=== PATIENT | male | born 1985 | race Caucasian/White ===

== ENCOUNTER 2020-05-31 12:13 | Emergency (ER) | payer OTHER, SELFPAY ==
[2020-05-31 12:14] VITALS: BP 138/82; PULSE 73; RESP 16; TEMP 35.9; O2SAT 100; BMI 25.0
--- NOTE | 2020-05-31 12:44 | ED.VIS.GEN ---
History of Present Illness Chief Complaint: Abd Pain Informant: Patient Narrative: Patient is a 35-year-old previously healthy male who presents to the emergency department for right lower quadrant abdominal pain. Has been present over the past 3 days. He currently rates it as a 2 out of 10. He denies ever experiences before in the past. Does not radiate. He tried taking Tums, having bowel movements and putting topical ointments on it which did not give any relief. Denies any injury or inciting event to this. No urinary symptoms. No change in bowel habits. No nausea vomiting. No fevers or chills. No previous abdominal surgeries. Past Medical History - Allergies and Home Meds Allergies/Adverse Reactions: Allergies Penicillins Allergy (Verified 05/31/20 12:16) Shortness of breath Primary Care Physician: Matty Forbes MD [Primary Care Provider] - 2 Days Prior records reviewed: Yes Past Medical History: None Surgical History: no surgical history Smoking Status: Never smoker Review of Systems All systems negative except as indicated General: Denies: Chills, Fever, Sweats Eyes: Denies: Visual changes - bilaterally, Diplopia ENT: Denies: Rhinorrhea, Sore throat Cardiovascular: Denies: Chest pain, Palpitations Respiratory: Denies: Dyspnea, Cough, Dyspnea on exertion Gastrointestinal: Reports: Abdominal pain. Denies: Nausea, Vomiting, Diarrhea, Melena, Hematochezia Genitourinary: Denies: Dysuria, Hematuria, Frequency Musculoskeletal: Denies: Back pain, Extremity Pain Skin: Denies: Rash, Wounds Neurological: Denies: Headache, Weakness, Numbness Physical Exam Vital Signs/Narrative: Vital Signs Temp Pulse Resp BP Pulse Ox 05/31/20 12:14 96.6 F L 73 16 138/82 H 100 General: Well nourished, Well developed, No Acute Distress Head: Normocephalic, Atraumatic Eyes: Perrl, EOMI ENT: Moist mucous membranes, No rhinorrhea Neck: Supple, Nontender Cardiovascular: Regular rate, Regular rhythm, No murmurs Respiratory: No distress, CTA bilaterally, Chest nontender Abdomen: Soft, Nontender, Nondistended, Normal bowel sounds, - - Pain is not reproducible in the right lower quadrant Back: Nontender, Normal Inspection. Negative for: CVA tenderness Extremities: Nontender, No edema Skin: Normal color, No rash Neurological: Alert, Normal Strength, Normal Sensation Psychological: Normal affect, Normal Mood Diagnostic/Tx/Re-eval - Medical Decision Making Patient presents to the emergency department for right lower quadrant abdominal pain. He appears in no acute distress. Vital signs within normal limits. Physical exam is benign without any reproducible pain. Given the fact he is only in 2 out of 10 pain, no reproducible pain I have very low concern for appendicitis. This could be a muscle strain. I do not feel CT scan of the abdomen/pelvis is necessary at this time. He was agreeable to checking basic lab work to see if there is any abnormality. Will trial a dose of Toradol to see if this does give some anti-inflammatory effect if this is muscular. Patient's lab work did not reveal a significant acute abnormality. He does not have a high white blood cell count. Liver enzymes within normal limits. His urine does not show any signs of infection or blood. Since he is in no distress and has a benign physical exam. Will hold off on CT at this time. If he develops any worsening symptoms, bloody bowel movements, fever/chills he is to return to the emergency department for further evaluation. He otherwise is to follow-up with his PCP. We did recommend symptomatic treatment otherwise in the meantime. He understands and is agreeable this plan. All questions were answered. ED Disposition - Plan for ED Patient: Disposition: Home or Assisted Living Diagnosis: Abdominal pain Instructions: ED Unknown Causes of Abdominal ... Referrals: Matty Forbes MD [Primary Care Provider] - 2 Days
[2020-05-31 12:58] LABS: Absolute Lymphocyte Count 2.43 X10^3/uL (0.83-4.51); Absolute Neutrophil Count 2.5 X10^3/uL (2.0-7.7); Basophil# 0.04 X10^3/uL; Basophil% 0.7 % (0-1); Eosinophil# 0.37 X10^3/uL; Eosinophils% 6.5 % (0-5); Hematocrit 44.9 % (40-54); Hemoglobin 14.7 g/dL (13.0-16.5); Lymphocyte # 2.43 X10^3/ul (4.0); Lymphocyte % 42.5 % (19-41); Mean Corp Hgb Conc 32.7 g/dL (32-36); Mean Corpuscular Hgb 29.5 pg (27.0-32.0); Mean Platelet Vol. 10.9 fl (6.2-12.0); Monocyte# 0.38 X10^3/uL; Monocyte% 6.6 % (0-10); NRBC Flagged by Analyzer 0 % (0-5); Neutrophil # 2.49 X10^3/uL (2.7-7.7); Neutrophil % 43.5 % (47-70); Platelet Count 237 K/mm3 (150-450); RBC Distribution Width CV 12.6 % (11.6-14.6); RBC Distribution Width SD 41.3 fl (35.1-43.9); Red Blood Count 4.99 M/mm3 (4.6-6.2); White Blood Count 5.7 K/mm3 (4.4-11.0)
[2020-05-31] MEDS: Ketorolac 15 MG/ML Vial IV (12:58)
[2020-05-31 13:06] LABS: Bacteria 0 SEEN /hpf (None Seen); Mucous, Urine 0 SEEN /hpf (<or=2+); Red Blood Cells-Urine 0 SEEN /hpf (0-5); Squamous Epithelial Cells - UA 0 SEEN /hpf (0-5); White Blood Cells 0 SEEN /hpf (0-5)
[2020-05-31 13:16] LABS: Color, Urine Yellow (Yellow); Glucose, Dipstick Normal (Normal); Ketone-Dipstick Negative (Negative); Leukocyte Esterase-Dipstick Negative /ul (Negative); Nitrite-Dipstick Negative (Negative); Occult Blood-Urine Negative /ul (Negative); Protein-Dipstick Negative (Negative); Urine Bilirubin Dipstick Negative (Negative); Urine Clarity Clear (Clear); Urine Urobilinogen Normal (Normal); Urine pH 6.5 (5.0 - 8.0)
[2020-05-31 13:38] LABS: AST(SGOT) 9 U/L (15-37); Alanine Aminotransfer ALT/SGPT 15 U/L (16-61); Albumin, Serum 3.9 g/dL (3.2-5.0); Alkaline Phosphatase 56 U/L (45-117); Anion Gap 3 (5-15); BUN 12 mg/dL (7-18); BUN/Creat Ratio 13.1 RATIO (10-20); Bilirubin, Direct 0.19 mg/dL (0.00-0.30); Calcium,Total 8.7 mg/dL (8.5-10.1); Chloride 105 mmol/L (98-107); Creatinine, Serum 0.91 mg/dL (0.70-1.30); EST Glomerular Filtration Rate 101 mL/min (>60); Est Glom Filt Rate - Afr Amer 122 mL/min (>60); Estimated Creatinine Clearance 110.66 ml/min; Glucose 95 mg/dL (74-106); Potassium 3.7 mmol/L (3.5-5.1); Protein, Total 6.9 g/dL (6.4-8.2); Sodium Level 139 mmol/L (136-145)
[2020-05-31 14:00] VITALS: BP 108/71; PULSE 58; RESP 16; O2SAT 100
== END 2020-05-31 14:02 | disposition home or self-care (01) ==
PROVIDERS: Emergency Provider Emergency Medicine; PCP Family Medicine
DX: R10.31 Right lower quadrant pain (principal)
CPT/HCPCS: 80048; 80076; 81001; 85025; 96374; 99282; J7030; A4216

== ENCOUNTER 2020-09-02 14:37 | Outpatient (RCR) | payer OTHER, SELFPAY | END 2020-11-08 23:59 | LOC: IMMUN 14:37 | PROVIDERS: PCP Family Medicine; Visit Provider Family Medicine | DX: Z23 Encounter for immunization (principal) | CPT/HCPCS: 0001A; 0002A; 91300 ==

== ENCOUNTER 2021-04-17 11:33 | Emergency (ER) | payer OTHER, SELFPAY ==
[2021-04-17 11:34] VITALS: BP 150/88; PULSE 72; RESP 16; TEMP 36.4; O2SAT 100; BMI 24.7
--- NOTE | 2021-04-17 12:07 | RAD_ITS ---
STUDY: X-RAY CHEST REASON FOR EXAM: Male, 36 years old. INTERMITTENT RIGHT SIDED CHEST PAIN SINCE WEEKEND. PAIN WORSENING, NOW HAS LEFT ARM PAIN. DID DO LOTS OF LEAF WORK OVER THE WEEKEND TECHNIQUE: AP COMPARISON: None. FINDINGS: EKG leads project over the chest. The lungs are clear and expanded. There is no demonstrated pleural abnormality. Normal size heart. Normal mediastinum and cornelia. Normal visualized pulmonary arteries. Normal visualized aortic arch and descending thoracic aorta. Normal visualized thoracic spine. Normal visualized ribs, clavicles, and shoulders. There is no demonstrated abnormality of the visualized soft tissue structures of the upper abdomen. RAD/Chest 1 View (Portable) IMPRESSION: Nonacute portable x-ray examination of the chest. Electronically Signed: Bal Morris MD ([place]) at 12:26 EST , Service support ,
--- NOTE | 2021-04-17 12:07 | EKG12_ITS ---
Test Reason : CP Blood Pressure : / mmHG Vent. Rate : 061 BPM Atrial Rate : 061 BPM P-R Int : 142 ms QRS Dur : 096 ms QT Int : 416 ms P-R-T Axes : 061 065 058 degrees QTc Int : 418 ms Normal sinus rhythm Normal ECG Confirmed by ROULA DIAZ, LESTER ([id number]), editorial director MIGUELANGEL SNYDER ([id number]) on 04/19/2021 9:52:57 AM Referred By: CHARISSE Confirmed By:LESTER CELESTE MD
[2021-04-17] MEDS: Aspirin 81 MG TAB.CHEW 324 MG PO (12:16)
[2021-04-17 12:24] LABS: Absolute Lymphocyte Count 2.19 X10^3/uL (0.83-4.51); Absolute Neutrophil Count 3.6 X10^3/uL (2.0-7.7); Basophil# 0.07 X10^3/uL; Eosinophil# 0.42 X10^3/uL; Eosinophils% 6.2 % (0-5); Hematocrit 44.9 % (40-54); Hemoglobin 14.8 g/dL (13.0-16.5); Lymphocyte # 2.19 X10^3/ul (0.83-4.51); Lymphocyte % 32.4 % (19-41); Mean Corpuscular Hgb 29.4 pg (27.0-32.0); Mean Corpuscular Volume 89.1 fL (80-94); Monocyte% 7.4 % (0-10); NRBC Flagged by Analyzer 0 % (0-5); Neutrophil # 3.56 X10^3/uL (2.7-7.7); Neutrophil % 52.7 % (47-70); Platelet Count 247 K/mm3 (150-450); RBC Distribution Width CV 12.5 % (11.6-14.6); RBC Distribution Width SD 40.8 fl (35.1-43.9); Red Blood Count 5.04 M/mm3 (4.6-6.2); White Blood Count 6.8 K/mm3 (4.4-11.0)
[2021-04-17 12:31] LABS: Anion Gap 4 (5-15); BUN 13 mg/dL (7-18); BUN/Creat Ratio 12.5 RATIO (10-20); Chloride 105 mmol/L (98-107); Creatinine, Serum 1.04 mg/dL (0.70-1.30); EST Glomerular Filtration Rate 86 mL/min (>60); Est Glom Filt Rate - Afr Amer 104 mL/min (>60); Estimated Creatinine Clearance 99.14 ml/min; Glucose 105 mg/dL (74-106); Potassium 3.7 mmol/L (3.5-5.1); Sodium Level 137 mmol/L (136-145); Troponin-I HS 4 pg/mL (3.0-78.0)
[2021-04-17 12:52] VITALS: BP 120/74; PULSE 60; RESP 18; O2SAT 99
[2021-04-17 13:16] VITALS: BP 109/72; PULSE 63; RESP 10; O2SAT 100
[2021-04-17 14:03] VITALS: BP 114/65; PULSE 67; RESP 19; O2SAT 99
[2021-04-17 14:33] LABS: Troponin-I HS 5 pg/mL (3.0-78.0)
--- NOTE | 2021-04-17 15:10 | EDS_ITS ---
HPI History of Present Illness Chief Complaint: Chest Pain Informant: patient Onset/Context/Timing Onset: Days (3) Activity at onset: gradual Timing: Intermittent and Lasts (Few seconds) Quality: Positive for Sharp Location: Right Chest Worsened By: Nothing Relieved By: Nothing Associated Symptoms: Negative for Nausea, Vomiting, Diaphoresis, Dyspnea, Cough, Fever, Lightheadedness, Acid Reflux and Palpitations Narrative Narrative: Patient presents with chest pain that has been intermittent over the past 3 days. Patient states that it only last for a few seconds when it comes on. Patient describes it as sharp. Patient states it is over the right upper chest. Patient states nothing makes it better nothing makes it worse. Patient denies any nausea or vomiting. Patient denies any diaphoresis. Patient denies any shortness of breath, cough, or fever. Patient denies any lightheadedness or dizziness. Patient denies any cardiac or PE risk factors. CVD Risk Factors: Negative for Hypertension, Diabetes, Hypercholesterolemia, Family History 1' </=55 and Smoking PE Risk Factors: Negative for Recent Travel/Surgery, Recent Immobilization, Prior DVT or PE, Cancer and OCP + Smoking + >/=35 PFSH PFSH Medical History no medical history no medical history Home Medications NK 04/17/21 [History Last Taken Unknown] Allergy/AdvReac Type Severity Reaction Status Date / Time Penicillins Allergy Shortness Verified 04/17/21 11:37 of breath Surgical History no surgical history no surgical history Social History Smoking Status: Never smoker ROS [facility] ED Constitutional Constitutional ED: Denies chills or fever(s) Eyes Eyes: Denies blurry vision or change in vision ENT ENT ED: Denies rhinorrhea or sore throat Cardiovascular Cardiovascular: Reports chest pain; Denies palpitations Respiratory/Chest Respiratory/Chest: Denies cough or dyspnea Gastrointestinal Gastrointestinal: Denies abdominal pain, nausea or vomiting Genitourinary Genitourinary ED: Denies dysuria or hematuria Musculoskeletal Musculoskeletal: Reports neck pain; Denies back pain Integumentary Denies abscess or rash Neurologic Neurologic: Denies headache(s) or weakness Allergic/Immunologic Allergic/Immunologic ED: Denies mouth swelling or urticaria EXAM Physical Exam Const Vital Signs: 04/17/21 11:34 04/17/21 12:07 04/17/21 12:52 Temperature 97.6 F L Temperature Source Temporal Pulse Rate 72 60 Respiratory Rate 16 18 Blood Pressure 150/88 H 120/74 Blood Pressure Mean 108 89 Pulse Ox 100 99 Oxygen Delivery Method Room Air Room Air Room Air 04/17/21 13:16 04/17/21 14:03 Temperature Temperature Source Pulse Rate 63 67 Respiratory Rate 10 L 19 H Blood Pressure 109/72 114/65 Blood Pressure Mean 84 81 Pulse Ox 100 99 Oxygen Delivery Method Room Air Positive well nourished and well developed General Appearance ED: well developed HEENT normocephalic and atraumatic Eyes PERRL and EOMs intact bilaterally Neck supple and no JVD Chest Wall palpation of chest normal Resp normal respiratory effort and clear to auscultation bilaterally Effort and Inspection: Negative for respiratory distress Cardio regular rate, regular rhythm and no murmurs GI normal to inspection, nondistended, normoactive bowel sounds, soft to palpation, non-tender and non-distended Extremity normal to inspection General Extremety ED: Negative for edema or tenderness General Extremity: Negative for edema Neuro oriented x3, CN's II-XII intact bilaterally and no sensory deficits noted Sensorium / Orientation: awake and alert Motor Exam: strength 5/5 throughout Psych mental status grossly normal Heart Score History: Slightly/Non-Suspicious ECG: Normal Age: </= 45 years Risk Factors: No Risk Factors Troponin: </= Normal Limit Score: 0 MDM MDM MDM Narrative Medical decision making narrative: EKG was obtained. On my interpretation, it showed a normal sinus rhythm with a rate of 61. UT interval, QRS interval, and QTc intervals were all normal. Rembrandt was normal. There are no acute ST or T wave changes. Portable 1 view chest x-ray was obtained. On my interpretation, lung ortiz are clear. There is normal cardiac silhouette. Bony thorax is no rmal. There is no acute process noted. Radiologist also interpreted the x-ray and agrees. CBC was within normal limits. Basic metabolic profile was normal. High-sensitivity troponin was normal. 2-hour repeat high-sensitivity troponin was normal. Patient was advised of his findings. Patient has a HEART score of 0. Patient was advised that this is low risk for acute cardiac event. Patient has no PE risk factors. Patient is PERC negative. Patient was instructed to follow-up with his primary care physician in 5 to 7 days for further evaluation. Patient understood and was agreeable with the plan. All questions were answered. Lab Data Attestation: I reviewed the patient's lab results. Labs: Laboratory Results - last 24 hr 04/17/21 04/17/21 04/17/21 11:45 11:45 14:11 WBC 6.8 RBC 5.04 Hgb 14.8 Hct 44.9 MCV 89.1 MCH 29.4 MCHC 33.0 RDW Std Deviation 40.8 RDW Coeff of Tiana 12.5 Plt Count 247 MPV 11.0 Immature Gran % (Auto) 0.300 Neut % (Auto) 52.7 Lymph % (Auto) 32.4 Fisher % (Auto) 7.4 Eos % (Auto) 6.2 H Baso % (Auto) 1.0 Absolute Neuts (auto) 3.6 Absolute Lymphs (auto) 2.19 Nucleated RBC % 0 Sodium 137 Potassium 3.7 Chloride 105 Carbon Dioxide 28.0 Anion Gap 4 L BUN 13 Creatinine 1.04 Estim Creat Clear Calc 99.14 Est GFR (MDRD) Af Amer 104 Est GFR (MDRD) Non-Af 86 BUN/Creatinine Ratio 12.5 Glucose 105 Calcium 9.0 Troponin I High Sens 4 5 Radiography Chest X-Ray - ED: 1 View, Read by ED Physician, Read by Radiologist and Normal Diagnostic Testing: Clinical Impression(s) from Imaging Studies Chest X-Ray 04/17/21 12:07 IMPRESSION: Nonacute portable x-ray examination of the chest. Electronically Signed: Bal Morris MD (Brooks) at 12:26 EST , Service support , EKG Initial EKG: Attestation: I personally reviewed and interpreted this EKG as follows: Interpretation: Sinus Rhythm (61) and No Acute Injury Pattern Prior EKG tracings: not available for review Discharge Plan Triage Chief Complaint: Chest Pain ED Provider: Kade Vergara Dx/Rx/DC Orders Clinical Impression: Chest pain of uncertain etiology Instructions: ED Chest Pain, Uncertain Cause Prescriptions: No Action NK RF: 0 Primary Care Provider: Matty Forbes Referrals: Matty Forbes MD [Primary Care Provider] - 5-7 Days Disposition Disposition: Home, Self Care
[2021-04-17 15:27] VITALS: BP 118/78; PULSE 74; RESP 16; O2SAT 99
== END 2021-04-17 15:27 | disposition home or self-care (01) ==
PROVIDERS: Emergency Provider Emergency Medicine; PCP Family Medicine
DX: R07.89 Other chest pain (principal)
CPT/HCPCS: 71045; 80048; 84484; 85025; 93005; 99284; A4216

== ENCOUNTER → 2023-07-30 | Outpatient (CLI) | payer OTHER, SELFPAY ==
--- OUTSIDE RECORDS SUMMARY | 2023-07-30 08:25 | XMS RPT_ITS | CCD ---
Author Name Unknown Address [address] [place] [address] Organization [facility] Care Team Providers Care Boat [employer]cher [employer] Name Role Phone Rudy Cisneros MD Unavailable [phone] Cate Torres Unavailable Unavailable Matty Forbes MD Primary Care Provider [phone] MATTY FORBES Primary Care Unavailable MATTY FORBES Primary Care Unavailable [place] Referring Unavailable MATTY FORBES Primary Care Unavailable Allergies Allergy Classification Reported Allergen(s) Allergy Type Date of Onset Reaction(s) Facility (2 sources) penicillin v Drug Allergy 7 [facility] Work Phone: (2 sources) Penicillins; Translations: [PENICILLINS] Drug Intolerance 1 Shortness of Breath [facility] Work Phone: Medications Completed/Discontinued Medications Medication Drug Class(es) Dates Sig (Normalized) Sig (Original) cetirizine hydrochloride 10 mg oral capsule (4 sources) Histamine-1 Receptor Antagonist Start: 04-08-2017 ZYRTEC ALLERGY 10 MG CAPS Take as directed CETIRIZINE HCL [id number] Cate Torres Problems Active Problems Problem Classification Problem Date Documented Da te Episodic/Chronic Asthma (3 sources) Asthma; Translations: [Unspecified asthma, uncomplicated] Onset: 04-08-2017 04-08-2017 Chronic Headache; including migraine (1 source) Headache; including migraine; Translations: [Headache, unspecified headache type] Onset: 04-03-2021 Other upper respiratory disease (3 sources) Seasonal allergy; Translations: [Other seasonal allergic rhinitis] Onset: 04-08-2017 04-08-2017 Chronic Unclassified (1 source) Suspected COVID-19 virus infection; Translations: [Suspected COVID-19 virus infection] Onset: 04-03-2021 Past or Other Problems Problem Classification Problem Date Documented Da te Episodic/Chronic Contraceptive and procreative management (2 sources) Encounter for other general counseling and advice on contraception; Translations: [Encounter for other general counseling and advice on contraception] Onset: 04-08-2017 04-08-2017 Episodic Nonspecific chest pain (3 sources) Chest pain; Translations: [Chest pain, unspecified] Onset: 04-08-2017 04-08-2017 Episodic Other upper respiratory disease (1 source) Nasal congestion; Translations: [Nasal congestion] Onset: 04-03-2021 Episodic Results Test Name Value Interpretation Reference Range Facil ity Vital Signs Date Time Vital Sign Value Performing Clinician Facility 04-08-2017 12:54-0500 BMI (Body Mass Index) 28.65 kg/m2 Rudy Cisneros MD [facility] Work Phone: 04-08-2017 12:54-0500 Body Temperature 98.1 [degF] Rudy Cisneros MD [facility] Work Phone: 04-08-2017 12:54-0500 BP Diastolic 81 mm[Hg] Rudy Cisneros MD [facility] Work Phone: 04-08-2017 12:54-0500 BP Systolic 124 mm[Hg] Rudy Cisneros MD [facility] Work Phone: 04-08-2017 12:54-0500 Height 175.26 cm Rudy Cisneros MD [facility] Work Phone: 04-08-2017 12:54-0500 Pulse (Heart Rate) 67 /min Rudy Cisneros MD [facility] Work Phone: 04-08-2017 12:54-0500 Respiratory Rate 18 /min Rudy Cisneros MD [facility] Work Phone: 04-08-2017 12:54-0500 Weight 88 kg Rudy Cisneros MD [facility] Work Phone: Encounters Encounter Date Encounter Type Care Provider Facility Start: 03-03-2022 End: 03-03-2022 ambulatory MATTY FORBES Facility:[facility] Start: 03-03-2022 End: 03-03-2022 ambulatory [facility] Work Phone: [facility] Start: 04-03-2021 End: 04-03-2021 ambulatory MATTY FORBES [facility] Procedures Date Procedure Procedure Detail Performing Clinician Start: 03-03-2022 INFLUENZA VACCINE QUADRIVALENT 6 MO - 64 YRS IM Ciro Dial DO Work Phone: Plan of Treatment Date Care Activity Detail Author Start: 08-08-2021 COVID-19 VACCINE (4 - Booster for Pfizer series) COVID-19 VACCINE (4 - Booster for Pfizer series) [facility] Start: 06-03-2021 DEPRESSION ASSESSMENT DEPRESSION ASSESSMENT [facility] Start: 03-07-2021 LIPID SCREEN LIPID SCREEN [facility] Start: 04-08-2017 End: 04-08-2017 Appointment Appointment [facility] Work Phone: Start: 2005 Urine microalbumin profile DTAP,TDAP,TD (1 - Tdap) [facility] Start: 01-04-2004 HEPATITIS C SCREENING HEPATITIS C SCREENING [facility] Start: 01-04-2004 HIV SCREENING HIV SCREENING [facility] Start: 1986 HEPATITIS B (1 of 3 - 3-dose series) HEPATITIS B (1 of 3 - 3-dose series) [facility] Work Phone: Immunizations Immunization Date Immunization Notes Care Provider Dillan cortes 03-03-2022 influenza, injectabl e, quadrivalent, contains preservative [facility] Work Phone: [facility] 02-25-2021 influenza, injectabl e, quadrivalent, contains preservative Immunization [facility] Work Phone: [facility] Work Phone: 04-09-2020 influenza, injectabl e, quadrivalent, contains preservative Immunization [facility] Work Phone: [facility] 03-28-2019 influenza, injectabl e, quadrivalent, contains preservative Immunization [facility] Work Phone: [facility] Work Phone: 03-15-2018 influenza, injectabl e, quadrivalent, contains preservative Immunization [facility] Work Phone: [facility] Work Phone: 03-09-2017 influenza, injectabl e, quadrivalent, contains preservative Immunization [facility] Work Phone: [facility] Payers Date Payer Category Payer Unknown MMO MMO [employer] [id number] 2019-Present [phone] [address] [place] [address] PPO [id number] 2019 Unknown [id number] Social History Date Type Detail Facility Start: 12-03-2012 Tobacco smoking stat [facility] Never smoked tobacco [facility] Start: 12-03-2012 Tobacco use and exposure Smoke less tobacco non-user [facility] Start: 04-03-2021 Alcohol intake 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 Author Type: Nurse Practitioner Type: Progress Notes Filed: 04/03/2021 4:52 PM Note Text: Subjective HPI HPI Javier Paez is a 36 year old male who presents today for CC of headache and sinus pressure and congestion in the past 24 hours Symptoms include: Fever (?100.4F): No or Chills: No Cough: No Shortness of breath: No or Difficulty breathing: No Fatigue: No Muscle aches: No Headache: Yes New loss of smell or taste: No Sore throat: No Nasal congestion: Yes or Rhinorrhea: Yes Nausea: No or Vomiting: No Diarrhea: No OTC meds/remedies that patient has tried: Mucinex. High risk category assessment No high risk factors Exposures: Sick contacts? No Family or close contacts with confirmed/probable COVID-19 in last 14 days? No BP 118/70 Pulse 66 Temp 36.7 ?C (98 ?F) Resp 16 Wt 76.7 kg (169 lb) SpO2 97% BMI 25.14 kg/m? Social History Tobacco Use - Smoking status: Never Smoker - Smokeless tobacco: Never Used Substance Use Topics - Alcohol use: No - Drug use: No PAST MEDICAL HISTORY Diagnosis Date - Asthma with acute exacerbation in pediatric patient - Chest pain - Environmental allergies I have confirmed and edited as necessary, the [facility] Review of Systems Constitutional: Negative for chills and fever. HENT: Positive for congestion and sinus pain. Negative for ear pain and sore throat. Respiratory: Negative for cough, sputum production, shortness of breath and wheezing. Cardiovascular: Negative for chest pain. Musculoskeletal: Negative for myalgias. Neurological: Positive for headaches (sinus). Objective Physical Exam Vitals and nursing note reviewed. HENT: Head: Normocephalic and atraumatic. Right Ear: Tympanic membrane, ear canal and external ear normal. Left Ear: Tympanic membrane, ear canal and external ear normal. Nose: Mucosal edema, congestion and rhinorrhea present. Right Sinus: Maxillary sinus tenderness and frontal sinus tenderness present. Left Sinus: Maxillary sinus tenderness and frontal sinus tenderness present. Mouth/Throat: Pharynx: Uvula midline. No oropharyngeal exudate or posterior oropharyngeal erythema. Tonsils: No tonsillar abscesses. Cardiovascular: Rate and Rhythm: Normal rate and regular rhythm. Heart sounds: Normal heart sounds. Pulmonary: Effort: Pulmonary effort is normal. Breath sounds: Normal breath sounds. No decreased breath sounds, wheezing, rhonchi or rales. Lymphadenopathy: Head: Right side of head: No submental, submandibular, tonsillar or preauricular adenopathy. Left side of head: No submental, submandibular, tonsillar or preauricular adenopathy. Cervical: No cervical adenopathy. Right cervical: No superficial cervical adenopathy. Left cervical: No superficial cervical adenopathy. ASSESSMENT/PLAN: 1. Headache, unspecified headache type - ICD9: 784.0, ICD10: R51.9 (primary diagnosis) - 2019 CORONAVIRUS 2. Nasal congestion - ICD9: 478.19, ICD10: R09.81 - 2019 CORONAVIRUS 3. Suspected COVID-19 virus infection - ICD9: V01.79, ICD10: Z20.822 Home isolation Testing ordered Comfort measures discussed When to seek higher level of care Notified in 24-48 hours with results, available on 2018 CORONAVIRUS Diagnosis and treatment plan were discussed and questions were answered to the patient's satisfaction. Pt acknowledged understanding of concepts and follow up plan. Specific signs and symptoms that would indicate the need for higher level of care were discussed in detail warranting prompt ER evaluation. Minoo Meza, STITCH BONDING MACHINE DRAWER IN.PATIENT TRANSITION SPECIALIST [facility] Summary Purpose Family History No Family History Records Found Advance Directives No Advanced Directives Records Found Additional Source Comments Source Comments (unrecognize d section and content) In the event this informatio n is protected by the Federal Confidentiality of Alcohol and Drug Abuse Patient Records regulations: The Federal rules restrict any use of the information to criminally investigate or prosecute any alcohol or drug abuse patient.[facility] Care Teams (unrecognized sec tion and content) (unrecognized sect ion and content) No Status Records Found INFORMATION SOURCE (unrecogn ized section and content) FOR RECORDS PERTAINING TO PATIENTS WHO ARE OR HAVE BEEN ENROLLED IN A CHEMICAL DEPENDENCY/SUBSTANCEABUSE PROGRAM, SOME INFORMATION MAY BE OMITTED. This clinical summary was aggregated from multiple sources. Caution should be exercised in using it in the provision of clinical care. This summary normalizes information from multiple sources, and as a consequence, information in this document may materially change the coding, format and clinical context of patient data. In addition, data may be omitted in some cases. CLINICAL DECISIONS SHOULD BE BASED ON THE PRIMARY CLINICAL RECORDS. [employer] provides no warranty or guarantee of the accuracy or completeness of information in this document.
[2023-07-30 12:18] LABS: Absolute Lymphocyte Count 2.22 X10^3/uL (0.83-4.51); Absolute Neutrophil Count 2.3 X10^3/uL (2.0-7.7); Basophil# 0.05 X10^3/uL; Basophil% 0.9 % (0-1); Eosinophil# 0.47 X10^3/uL; Eosinophils% 8.7 % (0-5); Hematocrit 45.8 % (40-54); Hemoglobin 14.9 g/dL (13.0-16.5); Lymphocyte # 2.22 X10^3/ul (0.83-4.51); Lymphocyte % 41.2 % (19-41); Mean Corp Hgb Conc 32.5 g/dL (32-36); Mean Corpuscular Hgb 29.2 pg (27.0-32.0); Mean Corpuscular Volume 89.6 fL (80-94); Mean Platelet Vol. 11.1 fl (6.2-12.0); Monocyte# 0.33 X10^3/uL; Monocyte% 6.1 % (0-10); NRBC Flagged by Analyzer 0 % (0-5); Neutrophil # 2.31 X10^3/uL (2.7-7.7); Neutrophil % 42.9 % (47-70); Platelet Count 252 K/mm3 (150-450); RBC Distribution Width CV 12.5 % (11.6-14.6); RBC Distribution Width SD 41.3 fl (35.1-43.9); Red Blood Count 5.11 M/mm3 (4.6-6.2); White Blood Count 5.4 K/mm3 (4.4-11.0)
[2023-07-30 13:07] LABS: ALB/GLOB Ratio 1.2 RATIO (0.9-2.4); AST(SGOT) 20 U/L (15-37); Alanine Aminotransfer ALT/SGPT 21 U/L (16-61); Albumin, Serum 4.1 g/dL (3.2-5.0); Alkaline Phosphatase 61 U/L (45-117); Anion Gap 3 (5-15); BUN 14 mg/dL (7-18); BUN/Creat Ratio 14.5 RATIO (10-20); Calcium,Total 9.2 mg/dL (8.5-10.1); Chloride 108 mmol/L (98-107); Cholesterol 139 mg/dL (200); Creatinine, Serum 0.96 mg/dL (0.70-1.30); EST Glomerular Filtration Rate 93 mL/min (>60); Est Glom Filt Rate - Afr Amer 112 mL/min (>60); Globulin 3.3 g/dL (2.2-4.2); Glucose 99 mg/dL (74-106); High Density Lipoprotein 38 mg/dL; Potassium 3.8 mmol/L (3.5-5.1); Protein, Total 7.4 g/dL (6.4-8.2); Sodium Level 140 mmol/L (136-145); Triglycerides 55 mg/dL; Very Low Density Lipoprotein 11 mg/dL (5-40)
== END | disposition home or self-care (01) ==
PROVIDERS: PCP Internal Medicine; Visit Provider Internal Medicine
DX: Z13.6 Encounter for screening for cardiovascular disorders (principal); Z13.1 Encounter for screening for diabetes mellitus
CPT/HCPCS: 36415; 80053; 80061; 85025

== ENCOUNTER → 2023-09-13 | Outpatient (CLI) | payer OTHER, SELFPAY ==
--- NOTE | 2023-09-13 | LIP_PTH ---
PATIENT: JAVIER PAEZ LOC: [facility] U#:[id number] AGE/SX: 38/M ROOM: RE09/13/[address]: Dr. Nando Hernandez MD : [id number] BED: DIS: 09/13/2023 SPEC #: [id number] RECD: 09/13/23 16:23 STATUS: KEANU RADHA #: [id number] RACQUEL: 09/13/23 00:[address]: Nando Hernandez DEPT: SURGICAL PATHOLOGY RECD BY: Jose Lira ENTERED: 09/16/23 10:10 SP TYPE: LIPOMA OTHR DR: Dr. Jen Stone MD Tissues: Soft tissues, NOS Procedures: Surgery Specimen Level III HEADER OPERATION: Excision of lipoma of upper back PRE-OP DIAGNOSIS: Lipoma of back (upper) TISSUE SUBMITTED: Lipoma of back MICROSCOPIC DIAGNOSIS Lipoma of back, excision: Mature adipose tissue, consistent with lipoma. SJ/mr 09/17/23 MICROSCOPIC DESCRIPTION Slides are reviewed. GROSS DESCRIPTION Received in fixative is one container labeled with the patient's name and designated Lipoma of upper back. The specimen consists of two pieces of yellow adipose tissue measuring 4.2 x 3.0 x 1.0cm and 4.0 x 2.5 x 1.5cm. Sections reveal yellow adipose cut surfaces without area of hemorrhage necrosis or cystic degeneration. Sleep Technician sections are submitted in three cassettes. / 09/16/2023 TC:1 CPT:11906
== END | disposition home or self-care (01) ==
PROVIDERS: PCP Internal Medicine; Referring Provider Surgery; Visit Provider Surgery
DX: D17.1 Benign lipomatous neoplasm of skin and subcutaneous tissue of trunk (principal)
CPT/HCPCS: 88304

== ENCOUNTER → 2024-04-16 | Outpatient (CLI) | payer OTHER, SELFPAY ==
[2024-04-16 12:50] LABS: Absolute Lymphocyte Count 2.39 X10^3/uL (0.83-4.51); Absolute Neutrophil Count 3.3 X10^3/uL (2.0-7.7); Basophil# 0.06 X10^3/uL; Basophil% 0.9 % (0-1); Eosinophil# 0.65 X10^3/uL; Eosinophils% 9.6 % (0-5); Hematocrit 47.7 % (40-54); Hemoglobin 15.2 g/dL (13.0-16.5); Lymphocyte # 2.39 X10^3/ul (0.83-4.51); Lymphocyte % 35.1 % (19-41); Mean Corp Hgb Conc 31.9 g/dL (32-36); Mean Corpuscular Hgb 28.6 pg (27.0-32.0); Mean Corpuscular Volume 89.8 fL (80-94); Mean Platelet Vol. 11.8 fl (6.2-12.0); Monocyte# 0.39 X10^3/uL; Monocyte% 5.7 % (0-10); NRBC Flagged by Analyzer 0 % (0-5); Neutrophil # 3.29 X10^3/uL (2.7-7.7); Neutrophil % 48.4 % (47-70); Platelet Count 253 K/mm3 (150-450); RBC Distribution Width CV 12.5 % (11.6-14.6); RBC Distribution Width SD 41.7 fl (35.1-43.9); Red Blood Count 5.31 M/mm3 (4.6-6.2); White Blood Count 6.8 K/mm3 (4.4-11.0)
[2024-04-16 12:52] LABS: Erythrocyte Sedimentation Rate < 1 mm/hr (0-20)
[2024-04-16 13:31] LABS: ALB/GLOB Ratio 1.2 RATIO (0.9-2.4); AST(SGOT) 12 U/L (15-37); Alanine Aminotransfer ALT/SGPT 19 U/L (16-61); Alkaline Phosphatase 63 U/L (45-117); Anion Gap 5 (5-15); BUN 12 mg/dL (7-18); BUN/Creat Ratio 14.5 RATIO (10-20); CRP < 2.90 mg/L (0.0-3.0); Calcium,Total 9.1 mg/dL (8.5-10.1); Chloride 106 mmol/L (98-107); Creatinine, Serum 0.83 mg/dL (0.70-1.30); EST Glomerular Filtration Rate 111 mL/min (>60); Est Glom Filt Rate - Afr Amer 134 mL/min (>60); Globulin 3.3 g/dL (2.2-4.2); Glucose 97 mg/dL (74-106); Potassium 4.7 mmol/L (3.5-5.1); Protein, Total 7.3 g/dL (6.4-8.2); Sodium Level 140 mmol/L (136-145)
[2024-04-17 14:10] LABS: ANTINUCLEAR ANTIBODIES DIRECT Positive (Negative)
== END | disposition home or self-care (01) ==
LOC: BIMLAB 09:40
PROVIDERS: PCP Internal Medicine; Referring Provider Internal Medicine; Visit Provider Internal Medicine
DX: R51.9 Headache, unspecified (principal); R42 Dizziness and giddiness; R76.8 Other specified abnormal immunological findings in serum
CPT/HCPCS: 36415; 80053; 84443; 85025; 85652; 86038; 86140; 86225; 86235

== ENCOUNTER → 2025-04-05 | Outpatient (CLI) | payer OTHER, SELFPAY ==
--- NOTE | 2025-04-05 15:56 | RAD_ITS ---
PROCEDURE: LUMBAR SPINE 2 OR 3 VIEWS 04/05/2025 REASON FOR EXAM: ACUTE BACK PAIN TECHNIQUE: Procedure Code: RADSPLL Modality: DX Procedure: LUMBAR SPINE 2 OR 3 VIEWS COMPARISON: None. FINDINGS: BONES: Five [id number] lumbar vertebral bodies. No fracture or focal osseous lesion. Anatomic spinal alignment. Mild anterior wedge deformity of the T12 vertebral body. DISC/DEGENERATIVE CHANGES: Disc spaces are preserved. SOFT TISSUES: No acute abnormality seen. RAD/Lumbar Spine 2 or 3 Views IMPRESSION: No acute abnormality. Reading Location: [id number]
== END | disposition home or self-care (01) ==
LOC: MTLAB 15:56
PROVIDERS: PCP Internal Medicine; Referring Provider Internal Medicine; Visit Provider Internal Medicine
DX: M54.50 Low back pain, unspecified (principal)
CPT/HCPCS: 36415; 72100; 86225